=== PATIENT | male | born 1965 | race Caucasian/White ===

== ENCOUNTER 2025-03-27 14:40 | Emergency (ER) | payer SELFPAY ==
[~2025-03-27] VITALS: Ht 193 cm; Wt 100.0 kg
[2025-03-27 14:42] VITALS: O2SAT 99
[2025-03-27 14:43] VITALS: BP 107/67; PULSE 82; RESP 16; TEMP 36.9; O2SAT 100
== END 2025-03-27 16:38 | disposition left against medical advice (07) ==
LOC: ER 14:40
DX: R07.89 Other chest pain (principal); Z53.21 Procedure and treatment not carried out due to patient leaving prior to being seen by health care provider
CPT/HCPCS: 93005